=== PATIENT | male | born 1970 | race Caucasian/White ===

== ENCOUNTER 2016-10-25 17:09 | Emergency (ER) | payer OTHER ==
[~2016-10-25] VITALS: Ht 193 cm; Wt 118.9 kg
[2016-10-25 17:10] VITALS: TEMP 36.3; Ht 193 cm; Wt 118.9 kg
[2016-10-25] MEDS ORDERED: DOXY100C2 PO (17:27)
[2016-10-25] MEDS ORDERED: DOXYCYCLINE HYCLATE 100 MG CAP PO ONE ×2 (17:30→18:09)
[2016-10-25] MEDS ORDERED: METO25TA56 PO (17:45)
[2016-10-25] MEDS ORDERED: DOXYCYCLINE HYCLATE 100 MG CAP PO STA (18:05)
[2016-10-25 18:14] VITALS: BP 122/68; PULSE 64; O2SAT 98
[2016-10-25 18:51] LABS: LYME DISEASE AB IGM NEG (NEG)
[2016-10-25 18:52] LABS: LYME DISEASE AB IGG NEG (NEG)
--- NOTE | 2016-10-25 22:21 | EMERGENCY ROOM VISIT NOTE ---
History Report prepared by Jackie: Cami Renee Under the Supervision of: Dr. Ozzy Waite M.D. First contact with patient: 17:14 Chief Complaint: BITE Stated Complaint: BITE & BULLSEYE History of Present Illness The patient is a 46 year old male who presents to the Emergency Room with complaints of a worsening insect bite on his left lateral abdomen that started yesterday. The patient states that he felt something on his abdomen yesterday and scratched it then noticed that he had an insect bite. He did not see a tick , but he states that he noticed a Bullseye rash in the area of the bite earlier today, so he came into the ED. The patient states that he is in the area fishing , so [place]. The patient denies fevers, headaches, body aches, and any other rashes. The patient denies any history of Lyme disease as well as any significant past medical problems. He adds that he had an ingrown hair or something in the area of the insect bite recently and scratched that so he is unsure of if he infected it with his dirty fish water hands. Source of History: patient Onset: yesterday Position: abdomen (left lateral) Quality: other (insect bite) Timing: worsening Associated Symptoms: + rash, No fevers, No headache Note: no body aches Review of Systems See HPI for pertinent positives & negatives. A total of 10 systems reviewed and were otherwise negative. Past Medical & Surgical Medical Problems: (1) No significant past medical history Old medical records were attempted to be reviewed but there are no old records at this hospital. Nurse's notes were reviewed and I agree with. Family History No pertinent family history Social History Smoking Status: Never Smoker Housing Status: lives with family Occupation Status: employed Current/Historical Medications Scheduled Doxycycline Hyclate (Vibramycin), 100 MG PO BID Metoprolol Tartrate (Lopressor) (Lopressor), 1 TAB PO BID Allergies Coded Allergies: No Known Allergies (Unverified , 10/25/16) Physical Exam Vital Signs Date Time Temp Pulse Resp B/P Pulse Ox O2 Delivery O2 Flow Rate FiO2 10/25/16 18:14 64 18 122/68 98 10/25/16 17:10 36.3 66 18 145/86 98 Room Air Physical Exam General: Well developed well nourished non-ill appearing middle-aged male in no acute distress, breathing comfortably on room air. Normal speech HEENT: Normal cephalic atraumatic. Pupils are equal round and reactive to light. Extraocular movements are intact. Oropharynx is pink with moist mucous membranes. No swelling of the mouth lips or tongue. Neck: Supple with a midline trachea. No meningeal signs or stiffness, no JVD or bruits. No Stridor. Chest: Clear to auscultation bilaterally. No wheezes or rhonchi. No increased work of breathing. Heart: regular rate and rhythm. Abdomen: Several centimeter oval rash that has ring around it consistent with erythema migrans, no imbedded tick or bug seen at present, soft nontender, nondistended without rebound guarding or rigidity. Extremities: No cyanosis clubbing or edema. No calf tenderness or assymetry Spine/Back. Non tender to palpation. No CVA tenderness Skin: Good turgor without rashes. Neurologic exam: Cranial nerves two through 12 are intact. Motor and sensation are intact and symmetrical throughout. Medical Decision & Procedures Laboratory Results Test 10/25/16 17:40 Lyme Disease IgG Antibody NEG (NEG) Lyme Disease IgM Antibody NEG (NEG) Laboratory studies as stated above per my review. Medications Administered Medications (Trade) Dose Ordered Sig/Batsheva Route Start Time Stop Time Status Last Admin Dose Admin Doxycycline Hyclate (Vibramycin Cap) 100 mg ONE ONCE PO 10/25/16 17:30 10/25/16 17:31 DC 10/25/16 17:48 100 MG Doxycycline Hyclate (Vibramycin Cap) 300 mg STK-MED ONCE PO 10/25/16 18:09 10/25/16 18:10 DC 10/25/16 18:13 300 MG ED Course 1715: Past medical records reviewed. The patient was evaluated in room D7, and a complete history and physical examination were performed. 1729: Upon reevaluation, the patient is doing well. I discussed the results and treatment plan with him. He verbalized agreement of the treatment plan. The patient was discharged home. 1730: Ordered Vibramycin Cap 100 mg PO Medical Decision Differentials include, but are not limited to; Lyme disease, bug bite, cellulitis. This patient comes in as described above he is a rash in his abdomen which is likely consistent with erythema migrans. He's [place] [email or web address]. At this point, he does not fever or joint aches or any other symptoms of Lyme disease. Blood work was obtained and the patient was treated. Given his rash, I do think that he has early Lyme disease. He was given doxycycline 100 mg by mouth and a home pack for the weekend as well as a prescription for Doxy twice a day for the next 3 weeks. He was encouraged to return if: fever, joint aches or any other signs of Lyme disease. Additionally, he was warned that this could make him sensitiveness sunlight and to ensure that he stays out of sunlight and keep covered up. I also encouraged him follow-up with his regular doctor when he gets back home. The patient was discharged. Impression Primary Impression: Lyme disease Additional Impression: Erythema migrans (Lyme disease) Scribe Attestation The scribe's documentation has been prepared under my direction and personally reviewed by me in its entirety. I confirm that the note above accurately reflects all work, treatment, procedures, and medical decision making performed by me. Departure Information Dispostion Home / Self-Care Prescriptions Doxycycline Hyclate (VIBRAMYCIN) 100 Mg Cap 100 MG PO BID for 21 Days, #42 CAP Prov: Ozzy Waite M.D. 10/25/16 Referrals No Doctor, Assigned (PCP) Forms HOME CARE DOCUMENTATION FORM, IMPORTANT VISIT INFORMATION Patient Instructions [facility] Additional Instructions Rest. Drink plenty of fluids. Use doxycycline 100 mg twice a day for 21 days. Follow-up with your doctor when you get home. They may extend your antibiotics further Doxycycline can make you very sensitive in the sunlight and ensure that you use extra sunblock and cover so you do not get burned Return if: Fever, increasing redness or warmth, worsening of symptoms, any new problems or concerns. Problem Qualifiers
== END 2016-10-25 18:14 | disposition home or self-care (01) ==
LOC: C.EDB 17:10 → C.EDD 18:14
DX: A69.20 Lyme disease, unspecified (principal); S30.861A Insect bite (nonvenomous) of abdominal wall, initial encounter; W57.XXXA Bitten or stung by nonvenomous insect and other nonvenomous arthropods, initial encounter; Y92.821 Forest as the place of occurrence of the external cause